=== PATIENT | female | born 1965 | race Two or more races ===

== ENCOUNTER 2022-09-15 08:25 | Outpatient (CLI) | payer OTHER | END 2022-09-15 08:29 | disposition home or self-care (01) | LOC: SONOGRAMA 08:25 | PROVIDERS: ATTEND Pathology Anatomic Pathology & Clinical Pathology | DX: D34 Benign neoplasm of thyroid gland (principal); E04.9 Nontoxic goiter, unspecified; E06.3 Autoimmune thyroiditis; E04.2 Nontoxic multinodular goiter ==

== ENCOUNTER 2023-01-04 07:08 | Outpatient (CLI) | payer OTHER | END 2023-01-04 07:09 | disposition home or self-care (01) | LOC: NUCLEAR 07:08 | DX: M06.9 Rheumatoid arthritis, unspecified (principal); M19.90 Unspecified osteoarthritis, unspecified site ==